=== PATIENT | male | born 2000 | race Caucasian/White ===

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

== ENCOUNTER 2020-01-15 18:21 | Emergency (ER) | payer OTHER ==
[2020-01-15] MEDS ORDERED: AZITHROMYCIN 250 MG TAB PO ONE (18:55)
--- NOTE | 2020-01-15 18:58 | ED.PDOC ---
History of Present Illness - General Chief Complaint: Problem Stated Complaint: possible STD Time Seen by Provider: 01/15/20 18:48 Source: patient Exam Limitations: no limitations - History of Present Illness Initial Comments: 19-year-old male presents to the emergency department for evaluation for possible STD. He is currently sexually active with multiple male partners and this morning noticed some red bumps around the glans of his penis which she had not noticed before so he wanted to get these evaluated. He denies any discharge or tenderness. He denies any dysuria. He has a history of high blood pressure and did not take his medications this morning. He denies any other complaints or issues at this time. Allergies/Adverse Reactions: Allergies Topiramate Allergy (Verified 01/15/20 19:03) Home Medications: Ambulatory Orders Lisinopril 5 mg PO DAILY 04/27/19 Albuterol Sulfate [Proair Hfa] 108 mcg IN PRN 01/15/20 Citalopram Hydrobromide [Citalopram] 10 mg PO DAILY 01/15/20 Review of Systems - Review of Systems Constitutional: Denies: chills, fever EENTM: Denies: throat pain Gastrointestinal/Abdominal: Denies: abdominal pain, nausea, vomiting Genitourinary: States: other - Red bumps around the tip of the penis. Denies: discharge, dysuria, frequency Past Medical History (General) - Patient Medical History Hx Seizures: No Hx Stroke: No Hx Dementia: No Hx Asthma: Yes Hx of COPD: No Hx Cardiac Disorders: No Hx Congestive Heart Failure: No Hx Pacemaker: No Hx Hypertension: Yes Hx Thyroid Disease: No Hx Diabetes: No Hx Gastroesophageal Reflux: No Hx Renal Disease: No Hx Cancer: No Hx of HIV: No Hx Hepatitis C: No Hx MRSA: No - Vaccination History Hx Tetanus, Diphtheria Vaccination: No Hx Influenza Vaccination: Yes Hx Pneumococcal Vaccination: No - Social History Hx Tobacco Use: No Hx Chewing Tobacco Use: No Hx Alcohol Use: No Hx Substance Use: No Hx Substance Use Treatment: No Hx Depression: No Hx Physical Abuse: No Hx Emotional Abuse: No Hx Suspected Abuse: No Family Medical History - Family History Mother Family History: Unknown Hx Family;Other: Seizure Disorder-mom() Physical Exam - Physical Exam General Appearance: Alert, No apparent distress, Well Developed, Well Nourished Eyes, Ears, Nose, Throat Exam: PERRL/EOMI, normal ENT inspection, pharynx normal Neck: full range of motion, normal inspection Cardiovascular/Respiratory: regular rate, rhythm, no M/R/G, normal breath sounds Gastrointestinal/Abdominal: normal bowel sounds, non tender, soft Male Genital Exam: normal genitalia, other Skin Exam: normal color, warm/dry Comments: Vital Signs - 24 hr 01/15/20 18:53 Temperature 96.8 F L Pulse Rate [ 99 H Right Brachial] Respiratory 16 Rate Blood Pressure 166/123 [Left Arm] O2 Sat by Pulse 96 Oximetry Progress - Progress Progress: 01/15/2020 18:55 I discussed with the patient I do not see any abnormalities on his exam at this time. I discussed with him if he is concerned about a possible exposure that we should go ahead and prophylactically treat him for the most common STDs and we will send the test but the results will come back in several days. He would like to proceed with testing. He was also encouraged to follow-up with the public health department for any further STD testing as needed. He was encouraged to use safe sex practices. He was advised to return to the emergency department for any worsening of symptoms or other concerns. The patient has voiced understanding and agrees with the treatment plan and all questions and co ncerns were addressed. Departure - Departure Clinical Impression: Possible exposure to STD Time of Disposition: 19:00 Disposition: Discharge to Home or Self Care Condition: Good Departure Forms: ED Discharge - Pt. Copy, Patient Portal Self Enrollment Referrals: Isabella Banegas FNP [Primary Care Provider] - 1-2 Weeks Home Medications: Ambulatory Orders Lisinopril 5 mg PO DAILY 04/27/19 Albuterol Sulfate [Proair Hfa] 108 mcg IN PRN 01/15/20 Citalopram Hydrobromide [Citalopram] 10 mg PO DAILY 01/15/20 Additional Instructions: Always practice safe sex to minimize future risk. Follow-up with the public health department for any further STD testing including HIV and syphilis. Follow-up with your primary care physician in 1 to 2 weeks. Return to the emergency department for any concerning signs or symptoms.
[2020-01-15 21:13] VITALS: O2SAT 99
[2020-01-15 21:15] VITALS: BP 148/111; TEMP 98.1
== END 2020-01-15 20:08 | disposition home or self-care (01) ==
LOC: ER 18:21
DX: Z11.3 Encounter for screening for infections with a predominantly sexual mode of transmission (principal); N48.9 Disorder of penis, unspecified; I10 Essential (primary) hypertension; J45.909 Unspecified asthma, uncomplicated; Z88.8 Allergy status to other drugs, medicaments and biological substances; Z79.899 Other long term (current) drug therapy
CPT/HCPCS: 87491; 87591; J0696; Q0144

== ENCOUNTER → 2020-08-12 | Outpatient (CLI) | payer MEDICARE, OTHER | LOC: LAB.O 10:44 | PROVIDERS: ATTEND Family Medicine | DX: I10 Essential (primary) hypertension (principal); R10.9 Unspecified abdominal pain; R63.4 Abnormal weight loss ==

== ENCOUNTER → 2020-10-07 | Outpatient (CLI) | payer MEDICARE, OTHER ==
--- NOTE | 2020-10-07 15:07 | RAD ---
EXAM DESCRIPTION: Shoulder,Left 2 or More Views CLINICAL HISTORY: PAIN OF LEFT SHOULDER JOINT COMPARISON: None. TECHNIQUE: 2 views left FINDINGS: I see no bone joint or soft tissue abnormality. IMPRESSION: Normal left shoulder. Electronically signed by: Tommy Yu MD 10/07/2020 3:06 PM [facility]
== END ==
LOC: RAD 10:14
PROVIDERS: ATTEND Nurse Practitioner
DX: M25.512 Pain in left shoulder (principal)